=== PATIENT | male | born 1935 | race Caucasian/White ===

== ENCOUNTER 2023-11-13 08:27 | Outpatient (CLI) | payer OTHER ==
[2023-11-13] MEDS ORDERED: CYSTOGRAFIN 300 ML INFUS..BTL UR ONE (08:55)
== END 2023-11-13 16:02 | disposition home or self-care (01) ==
LOC: SRD 08:27
PROVIDERS: ATTEND Urology
DX: N32.1 Vesicointestinal fistula (principal)
CPT/HCPCS: 74430; 51600; Q9958